=== PATIENT | male | born 1990 | race Caucasian/White ===

== ENCOUNTER → 2018-11-27 | Outpatient (CLI) | payer OTHER ==
[~2018-11-27] MED LIST: PROHANCE 279.3MG/ML 15ML VIAL (A9576) As Ordered ONE; PROHANCE 279.3MG/ML 5ML VIAL (A9576) As Ordered ONE
--- NOTE | 2018-11-27 20:04 | REPVR ---
PROCEDURE INFORMATION: Exam: MR Head Without and With Contrast Exam date and time: 11/27/2018 5:49 PM Clinical history: 27 years old, male; Other: Disorder of left acostic nerve; Additional info: Disorders of left acoustic nerve TECHNIQUE: Imaging protocol: MR of the head without and with intravenous contrast. 3D rendering: MIP reconstructed images were created and reviewed. Contrast material: PROHANCE; Contrast volume: 16 ml; Contrast route: IV; COMPARISON: No relevant prior studies available. FINDINGS: Brain: There is a soft tissue mass in the left CP angle extending into and widening the porus acusticus measuring 10.1 x 1.5 x 10 cm consistent with an acoustic neuroma. Ventricles: Normal. No ventriculomegaly. Bones/joints: Unremarkable. Soft tissues: Unremarkable. Sinuses: Normal as visualized. No acute sinusitis. Mastoid air cells: Normal as visualized. No mastoid effusion. Orbits: Unremarkable. IMPRESSION: There is a soft tissue mass in the left CP angle extending into and widening the porus acusticus measuring 10.1 x 1.5 x 10 cm consistent with an acoustic neuroma. Electronically signed by: Roberto Bynum On 11/27/2018 20:04:24 PM
== END ==
LOC: M RAD 16:22
PROVIDERS: ATTEND Specialist
DX: H93.3X2 Disorders of left acoustic nerve (principal)
CPT/HCPCS: 70553; A9576

== ENCOUNTER 2019-04-25 20:22 | Emergency (ER) | payer OTHER ==
[~2019-04-25] VITALS: Ht 180.3 cm; Wt 81.0 kg
[2019-04-25] MEDS ORDERED: NS 1,000 ML IV ONE ×2 (21:00→22:15)
[2019-04-25 21:13] LABS: BASO # 0.1 10^3/uL (0.0-0.2); BASO % 0.7 % (0.0-1.0); EOS # 0.1 10^3/uL (0.0-0.5); HEMATOCRIT 43.2 % (42.0-52.0); LYMPH # 3.7 10^3/uL (1.5-5.0); LYMPH % 39.1 % (24.0-44.0); MEAN CORPUSCULAR HEMOGLOBIN 29.4 pg (27.0-33.0); MEAN CORPUSCULAR HGB CONC 34.7 g/dl (32.0-36.5); MEAN CORPUSCULAR VOLUME 84.7 fl (80.0-96.0); MONO # 0.7 10^3/uL (0.0-0.8); MONO % 6.9 % (0.0-5.0); NEUTROPHILS # 4.9 10^3/uL (1.5-8.5); NEUTROPHILS % 51.9 % (36.0-66.0); PLATELET COUNT, AUTOMATED 215 10^3/uL (150-450); WHITE BLOOD COUNT 9.4 10^3/uL (4.0-10.0)
[2019-04-25] MEDS ORDERED: LR 1,000 ML IV ONE (22:15)
[2019-04-26 00:58] VITALS: BP 116/53
== END 2019-04-26 01:00 | disposition home or self-care (01) ==
LOC: M ED 20:22
DX: M62.82 Rhabdomyolysis (principal); R60.0 Localized edema

== ENCOUNTER → 2019-04-26 | Outpatient (CLI) | payer OTHER ==
[~2019-04-26] MED LIST changes: +ACET1TAB55 PO; -PROHANCE 279.3MG/ML 15ML VIAL (A9576) As Ordered ONE; -PROHANCE 279.3MG/ML 5ML VIAL (A9576) As Ordered ONE
== END ==
LOC: M LAB 11:44
PROVIDERS: ATTEND Physician Assistant
DX: M62.82 Rhabdomyolysis (principal)

== ENCOUNTER 2019-04-27 20:53 | Inpatient (IN) | payer OTHER ==
[~2019-04-27] VITALS: Ht 180.3 cm; Wt 86.7 kg
[2019-04-27] MEDS ORDERED: LR 1,000 ML IV ONE (21:15)
[2019-04-27 21:35] LABS: BASO # 0.1 10^3/uL (0.0-0.2); BASO % 0.6 % (0.0-1.0); EOS # 0.2 10^3/uL (0.0-0.5); EOS % 1.8 % (0.0-3.0); HEMATOCRIT 41.5 % (42.0-52.0); HEMOGLOBIN 14.4 g/dl (13.5-17.5); LYMPH # 3.8 10^3/uL (1.5-5.0); LYMPH % 45.7 % (24.0-44.0); MEAN CORPUSCULAR HEMOGLOBIN 29.1 pg (27.0-33.0); MEAN CORPUSCULAR HGB CONC 34.7 g/dl (32.0-36.5); MEAN CORPUSCULAR VOLUME 83.8 fl (80.0-96.0); MONO # 0.6 10^3/uL (0.0-0.8); MONO % 6.6 % (0.0-5.0); NEUTROPHILS # 3.8 10^3/uL (1.5-8.5); NEUTROPHILS % 45.1 % (36.0-66.0); PLATELET COUNT, AUTOMATED 214 10^3/uL (150-450); RED BLOOD COUNT 4.95 10^6/uL (4.30-6.10); WHITE BLOOD COUNT 8.3 10^3/uL (4.0-10.0)
[2019-04-27] MEDS ORDERED: LR 1,000 ML IV SCH (22:00)
[2019-04-27] MEDS ORDERED: NS 1,000 ML IV ONE ×2 (22:30→23:30)
[2019-04-27 22:31] LABS: BLOOD UREA NITROGEN 17 MG/DL (7-18); CALCIUM LEVEL 8.5 MG/DL (8.5-10.1); CARBON DIOXIDE LEVEL 31 MEQ/L (21-32); CHLORIDE LEVEL 108 MEQ/L (98-107); CPK CREATINE PHOSPHOKINASE 9168 U/L (39-308); CREATININE FOR GFR 1.09 MG/DL (0.70-1.30); GLOMERULAR FILTRATION RATE > 60.0 (>60); GLUCOSE, FASTING 85 MG/DL (70-100); POTASSIUM SERUM 3.9 MEQ/L (3.5-5.1); SODIUM LEVEL 142 MEQ/L (136-145)
[2019-04-27] MEDS ORDERED: ACETAMINOPHEN TAB 650MG DOSE (2X325MG) PO PRN (23:00)
[2019-04-27] MEDS ORDERED: MORPHINE 10 MG/ML 1ML VIAL (J2270) IV ONE (23:00)
[2019-04-27] MEDS ORDERED: PERCOCET 5MG/325MG TAB PO PRN ×2 (23:00)
[2019-04-27] MEDS ORDERED: SENOKOT S TAB PO PRN (23:00)
[2019-04-28 00:30] VITALS: BP 119/64
[2019-04-28] MEDS: NS 1,000 ML IV SCH ×3 (02:51→16:50)
[2019-04-28 08:00] VITALS: BP 116/74
[2019-04-28] MEDS ORDERED: INFLUENZA QUADRIVALENT PF VACCINE 0.5ML SYRINGE (90686) IM ONE (09:00)
--- NOTE | 2019-04-28 15:35 | IPNPDOC ---
Text Note Date of Service The patient was seen on 04/28/19. NOTE Patient was seen and examined this morning with the at the bedside. The patient is feeling much better, but the CK continues to be minimally elevated at 4000 but trending down. PHYSICAL EXAMINATION: General: The patient is awake, alert, oriented x3, sitting up in the bed in no apparent distress. Head and Neck Exam: Extraocular muscles intact. Pupils equally round and reactive to light. Mucous membranes are moist. Neck is supple. There is no jugular venous distention (JVD). Cardiovascular: S1 and S2, regular rate. No real edema Respiratory: Clear auscultation Abdomen: Soft. Positive bowel sounds. Nontender. No organomegaly. Genitourinary: Deferred Musculoskeletal: Clubbing of the fingernails, no cyanosis was noted. Central Nervous System (STACKER DRIVER): No focal deficit. Power is 5/5 in all extremities. Labs reviewed Radiology reviewed Assessment and plan 1. Rhabdomyolysis. Because of exertion as he was in a complication of lifting weight and running. CK initially was very elevated and now it is trending down to [id number]. He'll be continued on IV fluids 100 mL of normal saline and the renal function will be monitored along with that. Electrolytes will be monitored for tomorrow. CK and repeat in the morning tomorrow. Likely discharge in the next 24 hours. VS,Fishbone, I+O VS, Fishbone, I+O Laboratory Tests 04/27/19 21:08 Vital Signs Date Time Temp Pulse Resp B/P (MAP) Pulse Ox O2 Delivery O2 Flow Rate FiO2 04/28/19 08:00 97.6 82 17 116/74 (88) 100 Room Air I&O- Last 24 Hours up to 6 AM 04/28/19 06:00 Intake Total 4100 ml Output Total 350 ml Balance 3750 ml FRANCESCA LOONEY MD Apr 28, 2019 15:35
[2019-04-28 16:30] VITALS: BP 123/67
--- NOTE | 2019-04-28 19:02 | HPE ---
DATE OF ADMISSION: 04/27/2019 CHIEF COMPLAINT: Bilateral calf pain and swelling. HISTORY OF PRESENT ILLNESS: This is a 28-year-old male with no past medical history, who was seen in the emergency room due to complaints of bilateral calf pain after going to a competition and running 4 miles doing a ruck march through the [facility], about 1 hour and 20 minutes, last Sunday. The patient took 1 gram of Tylenol. The soreness improved a little bit on Sunday, but he had difficulty ambulating at home. The pain is rated as 10 out of 10 at the worst and improved to about a 6 out of 10 after he had taken Tylenol. The patient was seen in the emergency room and given intravenous fluids and instructed to increase oral intake on 04/25/2019. The patient had worsening total CK of 9168, prompting him to come back to the emergency room for hospital admission. No hyperkalemia or renal failure has been noted. The patient otherwise denies any upper respiratory infections, sore throat, fever, chills, cough, shortness of breath, palpitations, lightheadedness, dizziness. Denies nausea, vomiting, diarrhea, abdominal pain. Denies dysuria, urgency, frequency, bilateral upper or lower extremity weakness or paresthesias. The patient denies anxiety, depression, dysphagia, odynophagia. Denies any changes in vision, changes in weight or appetite. The hospitalist was called to admit for acute rhabdomyolysis, worsening. PAST MEDICAL HISTORY: Acoustic neuroma. PAST SURGICAL HISTORY: [place] teeth extraction. HOME MEDICATIONS: - as needed Tylenol 1 gram twice a day ALLERGIES: No known drug allergies. SOCIAL HISTORY: Active duty at [employer]. No cigarette use. Alcohol use is two to three beers a week. Lives with . FULL CODE. The , Lakisha, phone number is [phone]. FAMILY HISTORY: Father alive at age 66 with hypertension. Mother alive at age 59 with hypothyroidism. Older brother 38 and older sister age 25, both alive and well with no medical problems. REVIEW OF SYSTEMS: As per history of present illness, 12-point system otherwise negative. PHYSICAL EXAMINATION: VITAL SIGNS: Temperature 97.3, pulse 55, respiratory rate 16, blood pressure 116/66, 97% on room air. GENERAL: The patient is awake, alert, oriented times three. Answering questions appropriately. Anicteric sclerae. No jaundice. Pupils are equal, round and reactive to light and accommodation. Extraocular muscles are intact. Normocephalic, atraumatic. Moist mucous membranes. No cervical lymphadenopathy or thyromegaly. Full range of motion of the neck. No stridor. LUNGS: Clear to auscultation. No wheezing, rales or rhonchi. Air entry is equal bilaterally. No adventitious breath sounds. HEART: S1, S2. Sinus bradycardia. No murmurs, rubs or gallops. Nondisplaced point of maximum impulse (PMI). Distal pulses are noted at 2+. Dorsalis pedis and posterior tibialis, radial and ulnar pulses 2+. ABDOMEN: Soft, nontender, nondistended. Positive bowel sounds times four quadrants. No hepatosplenomegaly. No abdominal bruits. No rebound or guarding. No fluid wave. EXTREMITIES: There is some calf tenderness without erythema. There is some slight swelling but no pitting edema. SKIN: Warm and dry. Well perfused. LABORATORY DATA: White count 8.3, hemoglobin 14, hematocrit 41, platelets 214, 45% neutrophils. Sodium 142, potassium 3.9, chloride 108, bicarbonate 31, BUN 17, creatinine 1.09, glucose 85, BNP 9168. ASSESSMENT AND PLAN: This is a 28-year-old male with a history of acoustic neuroma, wisdom teeth extraction, who was in his usual state of health until Sunday when he participated in a competition with a 1 hour and 20 minute ruck march and running 4 miles with subsequent rhabdomyolysis and bilateral calf tenderness on Sunday morning that was not alleviated with Tylenol and with increasing total CK of 9000 today despite IV fluid hydration on 04/25/2019 and increased oral intake at home. ACUTE ISSUES: 1. Acute rhabdomyolysis. The patient is admitted for IV fluids, 2 more liters IV bolus and will be continued at 200 mL per hour. Repeat serial total CK for pain management. The patient has been given intravenous morphine and Tylenol as needed, as well as Percocet one to two tablets for severe pain. 2. Acoustic neuroma. No acute issues. 3. Deep vein thrombosis (DVT) prophylaxis. Encourage ambulation. No Lovenox at this time. We will provide compression stockings. 4. Code status: FULL CODE. MTDD
[2019-04-29] VITALS: BP 118/69
[2019-04-29] MEDS: NS 1,000 ML IV SCH (01:32)
[2019-04-29 07:11] LABS: HEMATOCRIT 39.9 % (42.0-52.0); HEMOGLOBIN 13.9 g/dl (13.5-17.5); MEAN CORPUSCULAR HEMOGLOBIN 29.9 pg (27.0-33.0); MEAN CORPUSCULAR HGB CONC 34.8 g/dl (32.0-36.5); MEAN CORPUSCULAR VOLUME 85.8 fl (80.0-96.0); PLATELET COUNT, AUTOMATED 160 10^3/uL (150-450); RED BLOOD COUNT 4.65 10^6/uL (4.30-6.10); WHITE BLOOD COUNT 7.3 10^3/uL (4.0-10.0)
[2019-04-29 07:46] LABS: BLOOD UREA NITROGEN 9 MG/DL (7-18); CALCIUM LEVEL 8.4 MG/DL (8.5-10.1); CARBON DIOXIDE LEVEL 33 MEQ/L (21-32); CHLORIDE LEVEL 110 MEQ/L (98-107); CPK CREATINE PHOSPHOKINASE 2457 U/L (39-308); CREATININE FOR GFR 1.03 MG/DL (0.70-1.30); GLOMERULAR FILTRATION RATE > 60.0 (>60); GLUCOSE, FASTING 95 MG/DL (70-100); SODIUM LEVEL 143 MEQ/L (136-145)
[2019-04-29 08:14] VITALS: BP 118/65
[2019-04-29] MEDS ORDERED: INFLUENZA QUADRIVALENT PF VACCINE 0.5ML SYRINGE (90686) IM ONE (09:00)
[2019-04-29] MEDS ORDERED: ACET1TAB55 PO (11:38)
--- NOTE | 2019-04-29 11:41 | DS.PDOC ---
Discharge Summary General Date of Admission Apr 27, 2019 at 22:30 Date of Discharge 04/29/19 Discharge Summary Chief complaints: Muscle aches Final diagnosis: Rhabdomyolysis History of present illness and Hospital course This is a young adult who was having some complication and was lifting weight and running and after that he started having cramping pain. His cough muscles and was found to have elevated CK. He was initiated on IV fluids and bedrest and his CK improved, and currently came in down from [id number]. All his pains are gone. His renal function has been stable and is making good amount of urine. He has no aches or any crampiness at this time. He is medically optimized for discharge. Has been advised to refrain from any acute physical activity and continue to hydrate himself very well. He also has been advised to follow with PCP in 1 week. He'll medically optimized for discharge. PHYSICAL EXAMINATION: General: The patient is awake, alert, oriented x3, sitting up in the bed in no apparent distress. Head and Neck Exam: Extraocular muscles intact. Pupils equally round and reactive to light. Mucous membranes are moist. Neck is supple. There is no jugular venous distention (JVD). Cardiovascular: S1 and S2, regular rate. No real edema Respiratory: Clear auscultation Abdomen: Soft. Positive bowel sounds. Nontender. No organomegaly. Genitourinary: Deferred Musculoskeletal: Clubbing of the fingernails, no cyanosis was noted. Central Nervous System (AEROSPACE MANAGER): No focal deficit. Power is 5/5 in all extremities. Medications. As per discharge reconciliation medication list Activity as tolerated Diet. Regular Follow-up appointments. PCP in 1 week Condition on discharge. Patient is medically optimized for discharge Discharge disposition: Home Total time spent on this discharge including coordination of care, review of chart documentation and actual contact is around 35 minutes Vital Signs/I&Os Vital Signs Date Time Temp Pulse Resp B/P (MAP) Pulse Ox O2 Delivery O2 Flow Rate FiO2 04/29/19 08:14 97.8 51 18 118/65 (82) 98 Room Air I&O- Last 24 Hours up to 6 AM 04/29/19 05:59 Intake Total 3380 ml Output Total 3950 ml Balance -570 ml Laboratory Data Labs 24H Laboratory Tests 2 04/29/19 06:46: Nucleated Red Blood Cells % (auto) 0.0, Anion Gap 0L, Glomerular Filtration Rate > 60.0, Calcium Level 8.4L, Total Creatine Kinase 2457H CBC/BMP Laboratory Tests 04/29/19 06:46 Discharge Medications Scheduled PRN Acetaminophen (Acetaminophen) 325 Mg Tablet, 650 MG PO Q24HP PRN for PAIN OR FEVER Allergies Coded Allergies: No Known Allergies (Unverified , 04/27/19) FRANCESCA LOONEY MD Apr 29, 2019 11:41
== END 2019-04-29 12:16 | disposition home or self-care (01) | DRG 558 ==
LOC: M ED 20:53 → M ED INP 22:30 → ENRESERV 04-28 00:02 → M PED 04-28 00:15
PROVIDERS: ADMIT General Practice; ATTEND Internal Medicine
DX: M62.82 Rhabdomyolysis (principal); D33.3 Benign neoplasm of cranial nerves

== ENCOUNTER → 2019-04-27 | Outpatient (CLI) | payer OTHER ==
[2019-04-27 11:55] LABS: BLOOD UREA NITROGEN 15 MG/DL (7-18); CALCIUM LEVEL 9.1 MG/DL (8.5-10.1); CARBON DIOXIDE LEVEL 31 MEQ/L (21-32); CHLORIDE LEVEL 108 MEQ/L (98-107); CPK CREATINE PHOSPHOKINASE 6887 U/L (39-308); CREATININE FOR GFR 0.99 MG/DL (0.70-1.30); GLOMERULAR FILTRATION RATE > 60.0 (>60); GLUCOSE, FASTING 88 MG/DL (70-100); POTASSIUM SERUM 4.2 MEQ/L (3.5-5.1); SODIUM LEVEL 142 MEQ/L (136-145)
== END ==
LOC: M LAB 10:53
PROVIDERS: ATTEND Physician Assistant
DX: M62.82 Rhabdomyolysis (principal)